=== PATIENT | female | born 1970 | race Caucasian/White ===

== ENCOUNTER → 2018-09-23 | Outpatient (CLI) | payer BC ==
--- NOTE | 2018-09-23 20:56 | PCVCIMAG ---
APPROVED REPORT Study performed: 09/23/2018 15:41:55 Exam: Stress Echocardiogram Indication: CAD , Hyperlipidemia Stress Nurse: Mary Ortzi RN Status: routine Ht: 5 ft 4 in Medical History Medical History: Hx GA, Fatigue, Smoking, Diabetes Procedure The patient underwent an Exercise Stress Test using the Rafael Protocol. Blood pressure, heart rate, and EKG were monitored. An Echocardiogram was performed by medical technician assistant in four stages in quad fashion. At peak stress, four selected images were obtained and placed side by side with resting images for comparison. Stress Test Details Stress Test: Exercise stress testing was performed using a Rafael protocol. HR Resting HR: 81 bpmMax Heart Rate (APMHR): 172 bpm Max HR Achieved: 137 bpmTarget HR (85% APMHR): 146 bpm % of APMHR: 79 Recovery HR: 96 bpm HR response to stress: Normal HR response to stress BP Resting BP: 124/72 mmHg Max BP: 162/72 mmHg Recovery BP: 138/62 mmHg BP response to stress: Normal blood pressure response to stress. ECG Resting ECG: Sinus Rhythm Stress ECG: Sinus Rhythm Recovery ECG: Sinus Rhythm Clinical Reason for Termination: Leg Fatigue, Dyspnea, Maximal Effort Exercise duration: 5 min 21 sec Highest Stage Achieved: Stage 2: 2.5 mph at 12% grade. Exercise capacity: 7.00 METs Overall Exercise Capacity for Age: Poor Stress ECG Conclusion ECG: Non-ischemic Clinical: Non-ischemic Normal submaximal stress test. Pre-Stress Echo The resting Echocardiogram showed normal left ventricular contractility with an estimated Ejection Fraction of about >55%. Normal wall motion in all segments on baseline images. Post-Stress Echo The stress Echocardiogram showed normal left ventricular contractility with an estimated Ejection Fraction of about %. Normal augmentation of wall motion in all segments on post stress images. Clinical No clinical or ECG evidence for ischemia. Conclusion Clinical Response: Non-ischemic Exercise Capacity: Below Average Stress ECG Response: Non-ischemic Stress Echo Images: Non-ischemic The left ventricle is normal in size and wall thickness in both the rest and stress images. Normal stress echocardiogram with submaximal exercise stress. Other Information Study Quality: Adequate <Conclusion> The left ventricle is normal in size and wall thickness in both the rest and stress images. Normal stress echocardiogram with submaximal exercise stress.
== END | disposition home or self-care (01) ==
LOC: PCVCIMAG 15:18
PROVIDERS: ATTEND Internal Medicine Cardiovascular Disease
DX: I25.10 Atherosclerotic heart disease of native coronary artery without angina pectoris (principal); E78.5 Hyperlipidemia, unspecified; E11.9 Type 2 diabetes mellitus without complications
CPT/HCPCS: 93325; 93351